=== PATIENT | male | born 1995 | race Asian ===

== ENCOUNTER 2019-12-06 14:59 | Outpatient (CLI) | payer BC ==
[2019-12-06] MEDS ORDERED: NO MEDS (15:43)
== END 2019-12-06 23:59 | disposition home or self-care (01) ==
LOC: STAR 14:59
PROVIDERS: ATTEND Orthopaedic Surgery
DX: Z02.9 Encounter for administrative examinations, unspecified (principal)

== ENCOUNTER 2019-12-11 09:40 | Day surgery (SDC) | payer BC, OTHER ==
[2019-12-06 15:43] VITALS: BP 149/89
[~2019-12-11] VITALS: Ht 172.7 cm; Wt 117.7 kg
[~2019-12-11 09:40] MED LIST: NO MEDS
[2019-12-11] MEDS ORDERED: ROPIvacaine/PF 0.5%, 30 ML ONE (09:45)
[2019-12-11] MEDS ORDERED: LIDOCAINE 1%-EPI 1:100K, 20ML ONE (09:45)
[2019-12-11] MEDS ORDERED: LACTATED RINGERS 1,000 ML IV SCH (10:00)
[2019-12-11] MEDS ORDERED: ACETAMINOPHEN 500 MG TABLET PO ONE (10:00)
[2019-12-11] MEDS ORDERED: SCOPOLAMINE PATCH, 1.5MG PATCH.TD72 TD ONE (10:00)
[2019-12-11] MEDS ORDERED: LIDOCAINE-MPF 1%, 2ML INFIL ONE (10:00)
[2019-12-11] MEDS ORDERED: MULT-658 PO (10:11)
[2019-12-11 10:13] VITALS: BP 160/86
[2019-12-11] MEDS ORDERED: MIDAZOLAM 1 MG/ML, 2ML ONE (11:02)
[2019-12-11] MEDS ORDERED: FENTANYL PF 250 MCG/5ML ONE (11:03)
[2019-12-11] MEDS ORDERED: PROPOFOL 10 MG/ML, 20ML ONE (11:05)
[2019-12-11] MEDS ORDERED: ROCURONIUM 10MG/ML,5ML ONE (11:05)
[2019-12-11] MEDS ORDERED: SUCCINYLCHOLINE 20 MG/ML, 10ML ONE (11:05)
[2019-12-11] MEDS ORDERED: LIDOCAINE-MPF 2% ,5ML ONE (11:05)
[2019-12-11] MEDS ORDERED: DEXAMETHASONE 4 MG/ML, 1ML ONE ×2 (11:27)
[2019-12-11] MEDS ORDERED: CEFAZOLIN 1,000 MG ONE ×2 (11:27)
[2019-12-11] MEDS ORDERED: MIDAZOLAM 1 MG/ML, 2ML IV PRN (11:30)
[2019-12-11] MEDS ORDERED: DIAZEPAM 5 MG/ML, 2ML IVPush PRN (11:30)
[2019-12-11] MEDS ORDERED: HYDROmorphone 2 MG/ML, 1ML IVPush PRN (11:30)
[2019-12-11] MEDS ORDERED: ONDANSETRON 2MG/ML, 2ML IV PRN (11:30)
[2019-12-11] MEDS ORDERED: LABETALOL 5MG/ML, 20ML IV PRN (11:30)
[2019-12-11] MEDS ORDERED: ONDANSETRON ODT 8 MG PO PRN (11:30)
[2019-12-11] MEDS ORDERED: MEPERIDINE/PF 25MG/ML,1ML IVPush PRN (11:30)
[2019-12-11] MEDS ORDERED: EPHEDRINE 50 MG/ML, 1ML IVPush PRN (11:30)
[2019-12-11] MEDS ORDERED: hydrALAzine 20 MG/ML, 1ML IV PRN (11:30)
[2019-12-11] MEDS ORDERED: PROMETHAZINE 12.5 MG SUPP PR PRN (11:30)
[2019-12-11] MEDS ORDERED: PROMETHAZINE 25 MG/ML, 1ML IV PRN (11:30)
[2019-12-11] MEDS ORDERED: ALBUTEROL SULFATE 2.5 MG/3 ML NPPB PRN (11:30)
[2019-12-11] MEDS ORDERED: ONDANSETRON 2MG/ML, 2ML ONE (11:49)
[2019-12-11] MEDS ORDERED: DIAZEPAM 5 MG/ML, 2ML ONE (12:13)
[2019-12-11] MEDS ORDERED: FENTANYL PF 100 MCG/2ML ONE (12:13)
[2019-12-11] MEDS ORDERED: OXYcodone 5 MG/5 ML ORAL.SOL UDC ONE (12:14)
[2019-12-11] MEDS: FENTANYL PF 100 MCG/2ML IV PRN ×2 (12:15→12:25)
[2019-12-11] MEDS: OXYcodone 5 MG/5 ML ORAL.SOL UDC PO PRN ×2 (12:15→13:09)
== END 2019-12-11 13:55 | disposition home or self-care (01) ==
LOC: OUT 09:40
PROVIDERS: ATTEND Orthopaedic Surgery
DX: S83.282A Other tear of lateral meniscus, current injury, left knee, initial encounter (principal); M94.262 Chondromalacia, left knee; E66.9 Obesity, unspecified; Z68.41 Body mass index [BMI] 40.0-44.9, adult; Z87.891 Personal history of nicotine dependence; Z72.89 Other problems related to lifestyle; X58.XXXA Exposure to other specified factors, initial encounter; Y93.89 Activity, other specified; Y92.89 Other specified places as the place of occurrence of the external cause; Y99.8 Other external cause status
CPT/HCPCS: 29881; J0330; J0690; J1100; J2250; J2405; J2704; J2795; J3010; J3490; J7120